=== PATIENT | female | born 2005 | race Caucasian/White ===

== ENCOUNTER → 2025-02-18 | Day surgery (SDC) | payer OTHER ==
[~2025-02-18] MED LIST: BLISOVI FE 1.51 EACH PO; CEPHALEXIN500 MG PO; FENTANYL CITRATE/PF 100MCG/2 ML INJ ONE; IBUPROFEN200 MG PO; MIDAZOLAM HCL 2 MG/2 ML VIAL ONE; OMEPRAZOLE40 MG PO; PROPOFOL IV EMULSION 10 MG/ML 20 ML VIAL ONE
[2025-02-18] MEDS: LACTATED RINGER'S 1,000 ML ONE (09:53)
[2025-02-18 12:50] VITALS: BP 117/80; PULSE 81; RESP 18; O2SAT 100
== END | disposition home or self-care (01) ==
LOC: OR 09:41
PROVIDERS: ATTEND Internal Medicine Gastroenterology
DX: K29.50 Unspecified chronic gastritis without bleeding (principal); K20.90 Esophagitis, unspecified without bleeding; K44.9 Diaphragmatic hernia without obstruction or gangrene; R19.5 Other fecal abnormalities
CPT/HCPCS: 43239; 81025; J2250; J2470; J2704; J3010; J7121